=== PATIENT | female | born 1980 | race African-American/Black ===

== ENCOUNTER 2018-07-19 17:56 | Emergency (ER) | payer BC ==
[2018-07-19] MEDS ORDERED: HYDROcod/ACETAM 5/325 MG TABLET PO STA (18:44)
[2018-07-19] MEDS ORDERED: DEXAMETHASONE 10 MG/ML VIAL PO STA (18:44)
[2018-07-19] MEDS ORDERED: PENICILLIN VK 250 MG TABLET PO STA (18:44)
--- NOTE | 2018-07-19 18:47 | ED Physician Documentation ---
PD HPI HEENT - Stated complaint Stated Complaint: SORE THROAT - Chief complaint Chief Complaint: Heent - History obtained from History obtained from: Patient - History of Present Illness Timing - onset: How many days ago (4) Timing - duration: Days (4) Timing - details: Gradual onset Pain level max: 8 Pain level now: 8 Location: Right ear, Left ear, Throat Improves: Medication (motrin/tylenol) Worsens: Swalllowing Associated symptoms: Fever (subjective). No: Congestion, Rhinorrhea, Trismus, Unable to swallow, Swollen nodes, Facial swelling, Headache Recently seen: Not recently seen Review of Systems Constitutional: denies: Chills Throat: reports: Sore throat : denies: Now EGA Skin: denies: Rash PD PAST MEDICAL HISTORY - Past Medical History Past Medical History: No Cardiovascular: None Respiratory: None Endocrine/Autoimmune: None GI: None [employer]: None : None Psych: None Musculoskeletal: None Derm: None - Past Surgical History /[employer]: Tubal ligation, Breast reduction - Present Medications Home Medications: Ambulatory Orders Medication Instructions Recorded Confirmed Aripiprazole [Abilify] 15 mg 07/19/18 Ibuprofen [Motrin] 800 mg PO Q8H PRN #30 tablet 07/19/18 Penicillin V Potassium 500 mg PO Q6HR #40 tablet 07/19/18 Zolpidem Tartrate [Ambien] 10 mg 07/19/18 - Allergies Allergies/Adverse Reactions: Allergies Allergy/AdvReac Type Severity Reaction Status Date / Time No Known Drug Allergies Allergy Verified 07/19/18 18:03 - Social History Does the pt smoke?: No Smoking Status: Never smoker Does the pt drink ETOH?: No Does the pt have substance abuse?: No PD ED PE NORMAL - Vitals Vital signs reviewed: Yes - General General: Alert and oriented X 3, No acute distress, Well developed/nourished - HEENT HEENT: PERRL, Ears normal, Moist mucous membranes, Other (Bilateral tonsillar swelling with tonsillar exudates. Uvula midline. Normal phonation. No trismus ) - Neck Neck: Supple, no meningeal sign, Other (Shotty anterior lymphadenopathy) - Cardiac Cardiac: RRR, Strong equal pulses - Respiratory Respiratory: No respiratory distress, Clear bilaterally - Abdomen Abdomen: Soft, Non tender, Non distended - Derm Derm: Warm and dry, No rash - Neuro Neuro: Alert and oriented X 3 - Psych Psych: Normal mood, Normal affect Results - Vitals Vitals: Vital Signs - 24 hr 07/19/18 07/19/18 18:00 19:09 Temperature 36.7 C 36.9 C Heart Rate 103 H 83 Respiratory 18 16 Rate Blood Pressure 138/89 H 123/83 H O2 Saturation 100 98 Oxygen O2 Source Room air - Labs Labs: Laboratory Tests 07/19/18 18:15 Group A Strep Rapid Negative PD MEDICAL DECISION MAKING - ED course Complexity details: reviewed results, re-evaluated patient, considered differential (No peritonsillar or retropharyngeal abscess), d/w patient ED course: Patient is a 37-year-old female who presents to the emergency department with what appears to be streptococcal pharyngitis. She is well-appearing, nontoxic. Given dexamethasone. Will start on penicillin for home. Rapid strep is negative, but given the poor sensitivity of this test, will err on the side of caution and treat her clinically. Patient counseled regarding signs and symptoms for which I believe and urgent re-evaluation would be necessary. Patient with good understanding of and agreement to plan and is comfortable going home at this time This document was made in part using voice recognition software. While efforts are made to proofread this document, sound alike and grammatical errors may occur. - Sepsis Event Vital Signs: Vital Signs - 24 hr 07/19/18 07/19/18 18:00 19:09 Temperature 36.7 C 36.9 C Heart Rate 103 H 83 Respiratory 18 16 Rate Blood Pressure 138/89 H 123/83 H O2 Saturation 100 98 Oxygen O2 Source Room air Departure - Departure Disposition: 01 Home, Self Care Clinical Impression: Strep pharyngitis Condition: Good Instructions: ED Strep Pharyngitis Poss Follow-Up: your,doctor in 1 week [Other] Prescriptions: Penicillin V Potassium 500 mg PO Q6HR #40 tablet Ibuprofen [Motrin] 800 mg PO Q8H PRN #30 tablet PRN Reason: PAIN &/OR FEVER Comments: Take all antibiotics until gone. Return if you worsen. Drink plenty of fluids and rest Discharge Date/Time: 07/19/18 19:10
[2018-07-19] MEDS ORDERED: CHERRY SYRUP 10 ML UDC PO ONE (18:52)
[2018-07-19 19:16] VITALS: BP 123/83
== END 2018-07-19 19:10 | disposition home or self-care (01) ==
LOC: ED 17:56
DX: J02.0 Streptococcal pharyngitis (principal)
CPT/HCPCS: 87070; 87430; 99283; A9270